=== PATIENT | female | born 1975 | race Caucasian/White ===

== ENCOUNTER 2017-08-03 08:27 | Inpatient (IN) | payer BC ==
--- NOTE | 2017-08-02 15:54 | HP ---
PREOPERATIVE HISTORY AND PHYSICAL: DATE OF ADMISSION/SURGERY: 08/03/17 HISTORY OF PRESENT ILLNESS: Mrs. Cuadra is a 42-year-old 1, para 1 with her last menstrual period of 07/15/17, who has been followed by me for a persistent 6 to 7 cm right ovarian cystic mas s with secondary pelvic pain and discomfort. She has had serial ultrasounds over several months wit hout resolution of this mass or its symptoms. She also desires permanent sterilization and would li ke surgical sterilization at the time of her surgery. She is scheduled to undergo a laparotomy with possible right ovarian cystectomy or salpingo-oophorectomy and bilateral tubal ligation on 08/03/17 . This patient has been counseled regarding her clinical signs and symptoms and findings and possib le diagnosis. She has also been counseled on the material indications, contraindications, risks - b enefits, common side effects - complications of the procedure and relevant alternatives prior to her consent. PAST MEDICAL HISTORY: Asthma, migraine headaches, seasonal allergic rhinitis, mild mitral valve pro lapse for which she has been told no antibiotics are needed. PAST SURGICAL HISTORY: Pilonidal cyst removal in 1994, again in 2005. OBSTETRICAL HISTORY: One full-time spontaneous vaginal delivery with no complications. GYNECOLOGIC HISTORY: No history of sexually transmitted disease, no history of abnormal Pap smears. MEDICATIONS: 1. Nortriptyline 10 mg a day for migraine headaches. 2. Imitrex 25 mg a day on as needed basis for migraine headaches. 3. Claritin 10 mg daily. ALLERGIES: No known drug allergies. She does have allergies to LATEX. FAMILY HISTORY: Breast cancer, colon cancer, hypertension, and thyroid disease. SOCIAL HISTORY: , employed in a managerial job. Denies cigarette, alcohol or drug use. PHYSICAL EXAMINATION VITAL SIGNS: The patient is 5 feet 4 inches tall. Weight 175 pounds. Temperature is 98.1, pulse i s 68, blood pressure is 135/72. HEAD AND NECK: Normocephalic. Clear throat. No thyromegaly. LUNGS: Clear to auscultation bilaterally. CARDIOVASCULAR: Heart, regular rate and rhythm with no appreciable murmur. BREAST EXAM: No masses, no skin lesions. No nipple discharge bilaterally. ABDOMEN: Soft, nondistended, normoactive bowel sounds. Positive right lower quadrant pain with segrio p palpation. No rebound, no guarding. No hepatosplenomegaly. PELVIC EXAM: Normal external genitalia. Speculum exam revealed normal vaginal mucosa, normal cerv ix. Bimanual Exam: Uterus is normal size, shape and contour, anteverted, nontender. Left adnexa n ontender. No masses palpable. Right adnexal tenderness noted with a palpable right adnexal mass. IMAGING: Office ultrasound revealed a persistent 6 to 7 cm cystic ovarian mass, normal uterus, nor mal left adnexa. IMPRESSION: A 42-year-old with a persistent right adnexal mass, symptomatic and desires for permane nt sterilization. PLAN: Laparotomy with possible right ovarian cystectomy or salpingo-oophorectomy and bilateral tuba l ligation on 08/03/17. [id number]/[facility] #: [id number]
[~2017-08-03 08:27] MED LIST: Buffered Lidocaine 0.9% SYRIN* 5 ML/SYR SYRINGE INTRADERM ONE
[2017-08-03] MEDS ORDERED: Buffered Lidocaine 0.9% SYRIN* 5 ML/SYR SYRINGE ONE (08:33)
[2017-08-03] MEDS ORDERED: ceFOXitin 2 GM IVPREMIX* 2 GM/50 ML BAG ONE (08:33)
[2017-08-03] MEDS ORDERED: Bupivacaine 0.5% SDV PF* 30 ML VIAL ONE (10:05)
[2017-08-03] MEDS ORDERED: Scopolamine 1.5 mg* PATCH ONE (10:22)
[2017-08-03] MEDS ORDERED: Atracurium* 10 MG/ML 10 ML VIAL ONE (10:26)
[2017-08-03] MEDS ORDERED: Midazolam* 1 MG/ML 5 ML VIAL (5 MG) ONE (10:26)
[2017-08-03] MEDS ORDERED: Propofol* 10 MG/ML 20 ML BTL IV PUSH ONE (10:26)
[2017-08-03] MEDS ORDERED: fentaNYL* 50 MCG/ML 2 ML VIAL (100 MCG VIAL) ONE ×3 (10:26→12:21)
[2017-08-03] MEDS ORDERED: Dexamethasone IV* 4 MG/ML 1 ML (4 MG) ONE (10:26)
[2017-08-03] MEDS ORDERED: oxyCODONE TAB* 5 MG TAB PO PRN (11:44)
[2017-08-03] MEDS ORDERED: DiMENhydriNATE IV* 50 MG/ML VIAL IV PUSH PRN (11:44)
[2017-08-03] MEDS ORDERED: HYDROcodone/ACETAMIN 5-325 MG* 1 TAB PO PRN (11:44)
[2017-08-03] MEDS ORDERED: Ondansetron INJ* 2 MG/ML VIAL IV PRN (11:44)
[2017-08-03] MEDS ORDERED: Ondansetron INJ* 2 MG/ML VIAL ONE (11:56)
[2017-08-03] MEDS ORDERED: Ketorolac INJ* 30 MG/ML 1 ML VIAL ONE (11:56)
[2017-08-03] MEDS ORDERED: Neostigmine Methylsulfate* 2 MG/2 ML SYRINGE ONE (12:07)
[2017-08-03] MEDS ORDERED: Glycopyrrolate IV* 0.2 MG/ML 1 ML VIAL ONE (12:07)
[2017-08-03] MEDS ORDERED: HYDROmorphone INJ* 1 MG/ML CARPUJECT SYRINGE ONE (12:21)
[2017-08-03] MEDS: fentaNYL* 50 MCG/ML 2 ML VIAL (100 MCG VIAL) IV PRN ×4 (12:22→12:43)
[2017-08-03] MEDS: HYDROmorphone INJ* 1 MG/ML CARPUJECT SYRINGE IV PRN ×5 (12:24→12:56)
[2017-08-03] MEDS: oxyCODONE/Acetamin 5/325 MG* TAB PO PRN ×2 (12:55→19:27)
[2017-08-03] MEDS ORDERED: oxyCODONE/Acetamin 5/325 MG* TAB ONE (12:55)
[2017-08-04] MEDS: oxyCODONE/Acetamin 5/325 MG* TAB PO PRN ×4 (01:17→15:46)
[2017-08-04] MEDS: Ibuprofen TAB* 600 MG PO PRN ×2 (01:17→10:48)
[2017-08-04 06:51] LABS: Hematocrit 36 % (35-47); Hemoglobin 12.3 g/dl (12.0-16.0); Mean Corpuscular HGB Conc 34 g/dl (31-36); Mean Corpuscular Hemoglobin 28 pg (27-31); Mean Corpuscular Volume 82 fL (80-97); Mean Platelet Volume 9 um3 (7.4-10.4); Red Blood Count 4.43 10^6/ul (4.0-5.4); Red Cell Distribution Width 14 % (10.5-15); White Blood Count 21.3 10^3/ul (3.5-10.8)
[2017-08-04] MEDS ORDERED: Docusate CAP* 100 MG PO PRN (07:56)
[2017-08-04] MEDS: Simethicone TAB* 80 MG TAB.CHEW PO SCH ×2 (08:17→15:46)
[2017-08-04] MEDS ORDERED: Influenza VAC *QUAD* 2017-18* 0.5 ML SYRINGE IM ONE (09:00)
[2017-08-04 17:08] VITALS: BP 133/74
--- NOTE | 2017-08-06 01:31 | OP ---
OPERATIVE REPORT: DATE OF OPERATION: 08/03/17 - Inpatient, [facility] room 338-01. DATE OF : 73 SURGEON: Jimmy Singer MD PRESS ROOM SUPERVISOR: Dr. Paramjit Mcgowan. ANESTHESIOLOGIST: Felipe Evangelista MD ANESTHESIA: General anesthetic with endotracheal intubation. PRE-OP DIAGNOSES: Right ovarian cystic mass and a desired for permanent sterilization surgically. POST-OP DIAGNOSES: Right ovarian cystic mass and a desired for permanent sterilization surgically, right dermoid cyst. OPERATIVE PROCEDURE: Right ovarian cystectomy and bilateral salpingectomy. ESTIMATED BLOOD LOSS: Less than 50 cc. SPECIMENS SENT TO PATHOLOGY: Bilateral fallopian tubes. FLUIDS: The patient received 1600 cc of IV crystalloid fluid. URINE OUTPUT: Clear. FINDINGS: The patient was noted to have an enlarged about 7 cm right ovarian dermoid cyst, single cyst. The left ovary and tube was within normal limits and the right tube was also normal. The patient was also noted to have a normal uterus, bowel and bladder and there were no complications during this procedure. The patient was taken to the operating room where she was identified. She was placed on the operating table where a general anesthetic with endotracheal intubation was obtained without difficulty. She was then placed in the supine position, prepped and draped in a normal sterile fashion. A 6 cm of a Pfannenstiel skin incision was made with a knife and carried through to the underlying layer of fascia. The fascia was nicked in the midline , grasped with pickups, and extended sharply laterally with curved Miranda scissors. The fascia was then grasped with Nusrta clamps and dissected off the rectus muscle. Rectus muscles were in the midline bluntly, the peritoneum was identified, grasped with pickups, and entered sharply with Metzenbaum scissors and extended superiorly and inferiorly sharply. At this point, the patient was placed in a Trendelenburg position. The ovary was then brought up to the incision. Prior to this, we had placed a plastic ring retractor. At this point, we then proceeded with a cystectomy. The surface of the ovaries was coagulated and incision was then made. A purse-string suture had been placed previously with 3-0 Polysorb at the site of the ovarian cortex incision. The plain within the ovary and the cyst wall was then made and we proceeded to remove the cyst using sharp and blunt dissection. At some point, the cyst opened and dermoid fluid as well as hair was noted. This was suctioned with suction. Once we were able to completely remove the cyst from the ovary, this was sent to pathology. We then proceeded to irrigate the ovary and the ovary was closed using a baseball stitch with 3-0 Polysorb suture. The ovary was completely hemostatic. We then proceeded to irrigate the abdomen with copious saline and irrigation fluid was suctioned. Attention was then brought down to the fallopian tubes bilaterally where we proceeded with a salpingectomy by using a cautery transection device initially from distal end of the fallopian tube near the fimbria at the mesosalpinx. We proceeded with progressive coagulation and dissection with the device. Both the fallopian tubes were removed, they were sent to pathology. Pedicles were noted to be completely hemostatic. The uterus was returned to the patient's abdomen. We again irrigated the abdomen with fluid and irrigation fluid was suctioned and the plastic retractor was removed and we then proceeded to close the peritoneum with 3-0 Polysorb suture in a running fashion. The fascia was closed with 0 Polysorb suture in a running fashion and the skin was closed with 4-0 Monocryl in a subcuticular stitch. The patient tolerated the procedure well. Sponge, lap , and needle counts were correct x2. She was then transferred to recovery room area in stable condition. [id number]/[facility] #: [id number] [place]
== END 2017-08-04 18:35 | disposition home or self-care (01) | DRG 513 ==
LOC: AA 08:27 → EDSTATUS 10:00 → SSU 13:33
PROVIDERS: ADMIT Obstetrics & Gynecology; ATTEND Obstetrics & Gynecology
PROC: 0UB70ZZ Excision of Bilateral Fallopian Tubes, Open Approach (ICD-10-PCS; 2017-08-03)
PROC: 0UB00ZZ Excision of Right Ovary, Open Approach (ICD-10-PCS; principal; 2017-08-03 10:00)
DX: D27.0 Benign neoplasm of right ovary (principal); G43.909 Migraine, unspecified, not intractable, without status migrainosus; J45.909 Unspecified asthma, uncomplicated; I34.1 Nonrheumatic mitral (valve) prolapse; J30.2 Other seasonal allergic rhinitis; Z91.040 Latex allergy status; Z79.899 Other long term (current) drug therapy; Z82.49 Family history of ischemic heart disease and other diseases of the circulatory system; Z80.3 Family history of malignant neoplasm of breast; Z80.0 Family history of malignant neoplasm of digestive organs; Z84.89 Family history of other specified conditions; Z83.49 Family history of other endocrine, nutritional and metabolic diseases
CPT/HCPCS: 36415; 85025; 88302; 88305; 90686; A9270-GY; J0694; J1100; J1170; J1885; J2250; J2405; J2704; J3010